=== PATIENT | female | born 1985 | race African-American/Black ===

== ENCOUNTER 2016-10-21 17:14 | Emergency (ER) | payer OTHER ==
[~2016-10-21] VITALS: Ht 154.9 cm; Wt 65.8 kg
[~2016-10-21 17:14] MED LIST: ACETAMINOPHEN-1 EAC1 PO; ACETAMINOPHEN325 M1 PO; APAP500 PO; DERMOPLAST SPRA56 ML; DOXYCYCLINE 10100 MG PO; IBUPROFEN 400400 M1 PO; IBUPROFEN 600600 M1 PO; LORTAB 5 MG/5001 TA1 PO; METAMUCIL197.2 GM; NAPROSYN500 MG PO; NOHOMEMEDICATIONS; NORCO 5-325 TA1 EACH PO; PRENATAL; PRENATAL 1 PLU1 EACH PO; PRENATAL PO; TIZANIDINE HCL4 MG PO; TUCKS MEDICATE1 EAC1; TUMS PO; TYLENOL
[2016-10-21 17:42] LABS: URINE BILIRUBIN NEGATIVE (Negative); URINE BLOOD NEGATIVE (Negative); URINE COLOR YELLOW; URINE GLUCOSE-RANDOM* NEGATIVE (Negative); URINE KETONES NEGATIVE (Negative); URINE LEUKOCYTES-REFLEX NEGATIVE (Negative); URINE PROTEIN (DIPSTICK) NEGATIVE (Negative); URINE SPECIFIC GRAVITY 1.025 (1.003-1.035); URINE UROBILINOGEN 0.2 E.U./dl (0.2-1.0)
[2016-10-21 17:58] LABS: ABSOLUTE NEUTROPHILS 6.1 thou/uL (1.4-8.2); BASOPHILS 0.7 % (0.0-2.0); HEMATOCRIT 34.2 % (37.0-47.0); HEMOGLOBIN 11.3 gm/dL (12.0-15.0); LYMPHOCYTES 25.7 % (24.0-44.0); MANUAL DIFF NO; MCH 27.8 pg (26.0-34.0); MCV 84.3 fL (80.0-100.0); MONOCYTES 6.4 % (1.0-8.0); PLATELET COUNT 210 thou/uL (150-400); POLYS 65.2 % (36.0-66.0); RBC 4.06 mil/uL (4.20-5.00); WBC 9.4 thou/uL (4.0-11.0)
[2016-10-21 18:04] LABS: CALCIUM 8.8 mg/dL (8.5-10.1); CREATININE 0.8 mg/dL (0.6-1.0); POTASSIUM 3.4 mmol/L (3.5-5.1)
[2016-10-21 18:15] LABS: ALBUMIN 3.7 g/dL (3.4-5.0); TOTAL BILIRUBIN 0.9 mg/dL (<0.1-1.0); TOTAL PROTEIN 7.8 g/dL (6.4-8.2)
[2016-10-21] MEDS ORDERED: MIRALAX17 GM PO (18:41)
[2016-10-21] MEDS ORDERED: SENNA S TABLET1 EACH PO (18:41)
[2016-10-21 18:50] VITALS: BP 105/66
== END 2016-10-21 18:50 | disposition home or self-care (01) ==
LOC: ER 17:14
PROVIDERS: Emergency Medicine
DX: R10.13 Epigastric pain (principal); Z98.890 Other specified postprocedural states

== ENCOUNTER 2017-03-04 08:49 | Emergency (ER) | payer OTHER ==
[~2017-03-04] VITALS: Ht 152.4 cm; Wt 65.8 kg
[~2017-03-04 08:49] MED LIST changes: +MIRALAX17 GM PO; +SENNA S TABLET1 EACH PO
[2017-03-04 09:15] LABS: URINE BILIRUBIN NEGATIVE (Negative); URINE BLOOD TRACE (Negative); URINE CLARITY CLOUDY; URINE COLOR YELLOW; URINE GLUCOSE-RANDOM* NEGATIVE (Negative); URINE KETONES NEGATIVE (Negative); URINE LEUKOCYTES TRACE (Negative); URINE NITRITE NEGATIVE (Negative); URINE PROTEIN (DIPSTICK) 2+ (Negative); URINE SPECIFIC GRAVITY 1.025 (1.005-1.035); URINE UROBILINOGEN 0.2 E.U./dl (0.2-1.0)
[2017-03-04 09:31] LABS: CASTS None Seen /LPF (None Seen)
[2017-03-04 09:36] LABS: SQUAMOUS 0-3 Few /LPF (0-3)
[2017-03-04 09:44] LABS: URINE WBC >25 Many /HPF (0-5)
[2017-03-04 09:45] LABS: TRIPLE PHOSPHATE CRYSTALS 0-3 Few /LPF (None Seen); URINE RBC 0-2 Rare /HPF (0-2)
[2017-03-04 09:47] LABS: BACTERIA >30 Many /HPF (None Seen)
[2017-03-04 09:49] LABS: YEAST Present (None Seen)
[2017-03-04] MEDS ORDERED: DIFLUCAN200 MG PO (09:56)
[2017-03-04] MEDS ORDERED: MACROBID 100 M100 M1 PO (09:56)
== END 2017-03-04 10:19 | disposition home or self-care (01) ==
LOC: ER 08:49
PROVIDERS: Nurse Practitioner
DX: N39.0 Urinary tract infection, site not specified (principal); B37.9 Candidiasis, unspecified; Z98.890 Other specified postprocedural states

== ENCOUNTER 2017-03-10 23:51 | Emergency (ER) | payer OTHER ==
[~2017-03-10] VITALS: Ht 152.4 cm; Wt 65.8 kg
[~2017-03-10 23:51] MED LIST changes: +DIFLUCAN200 MG PO; +MACROBID 100 M100 M1 PO
[2017-03-11 00:22] LABS: URINE BILIRUBIN NEGATIVE (Negative); URINE BLOOD NEGATIVE (Negative); URINE CLARITY CLEAR; URINE COLOR YELLOW; URINE GLUCOSE-RANDOM* NEGATIVE (Negative); URINE KETONES NEGATIVE (Negative); URINE LEUKOCYTES NEGATIVE (Negative); URINE NITRITE NEGATIVE (Negative); URINE PROTEIN (DIPSTICK) NEGATIVE (Negative)
[2017-03-11] MEDS ORDERED: FLAGYL500 MG PO (00:50)
[2017-03-11] MEDS ORDERED: AZITHROMYCIN250 MG PO (00:50)
== END 2017-03-11 01:20 | disposition home or self-care (01) ==
LOC: ER 23:51
PROVIDERS: Emergency Medicine
DX: N76.0 Acute vaginitis (principal); R30.0 Dysuria; Z98.890 Other specified postprocedural states

== ENCOUNTER 2017-05-22 13:39 | Emergency (ER) | payer OTHER ==
[~2017-05-22] VITALS: Ht 152.4 cm; Wt 63.5 kg
[~2017-05-22 13:39] MED LIST changes: +AZITHROMYCIN250 MG PO; +FLAGYL500 MG PO
[2017-05-22 14:02] LABS: URINE BILIRUBIN NEGATIVE (Negative); URINE BLOOD NEGATIVE (Negative); URINE CLARITY CLEAR; URINE COLOR YELLOW; URINE GLUCOSE-RANDOM* NEGATIVE (Negative); URINE KETONES NEGATIVE (Negative); URINE LEUKOCYTES-REFLEX NEGATIVE (Negative); URINE NITRITE-REFLEX NEGATIVE (Negative); URINE PROTEIN (DIPSTICK) TRACE (Negative); URINE UROBILINOGEN 0.2 E.U./dl (0.2-1.0)
[2017-05-22] MEDS ORDERED: VALACYCLOVIR1000 MG PO (15:11)
[2017-05-23 14:57] LABS: HSV PCR SOURCE LABIA
[2017-05-25 18:06] LABS: HSV 1 DNA Negative (Negative); HSV 2 DNA Positive (Negative)
== END 2017-05-22 15:20 | disposition home or self-care (01) ==
LOC: ER 13:39
PROVIDERS: Physician Assistant
DX: A60.09 Herpesviral infection of other urogenital tract (principal); N89.8 Other specified noninflammatory disorders of vagina

== ENCOUNTER 2018-03-28 05:44 | Emergency (ER) | payer OTHER ==
[~2018-03-28] VITALS: Ht 152.4 cm; Wt 63.5 kg
[~2018-03-28 05:44] MED LIST changes: +VALACYCLOVIR1000 MG PO
[2018-03-28 05:49] VITALS: BP 110/51
== END 2018-03-28 06:36 | disposition home or self-care (01) ==
LOC: ER 05:44
DX: S63.501A Unspecified sprain of right wrist, initial encounter (principal); X58.XXXA Exposure to other specified factors, initial encounter; Y93.89 Activity, other specified; Y92.89 Other specified places as the place of occurrence of the external cause; Y99.8 Other external cause status

== ENCOUNTER 2018-10-16 21:35 | Emergency (ER) | payer BC ==
[~2018-10-16] VITALS: Ht 152.4 cm; Wt 65.8 kg
[2018-10-16 23:45] LABS: EOSINOPHILS 2.6 % (0.0-3.0); HEMATOCRIT 35.1 % (37.0-47.0); HEMOGLOBIN 11.6 gm/dL (12.0-15.0); LYMPHOCYTES 28.1 % (24.0-44.0); MCH 27.5 pg (26.0-34.0); MCV 83.4 fL (80.0-100.0); MONOCYTES 8.3 % (1.0-8.0); PLATELET COUNT 270 thou/uL (150-400); RBC 4.21 mil/uL (4.20-5.00); RDW 13.3 % (10.5-14.5); WBC 8.4 thou/uL (4.0-11.0)
[2018-10-16 23:56] LABS: CALCIUM 8.8 mg/dL (8.5-10.1); CREATININE 0.7 mg/dL (0.6-1.0); POTASSIUM 3.6 mmol/L (3.5-5.1)
[2018-10-17 00:03] LABS: ALBUMIN 3.7 g/dL (3.4-5.0); TOTAL BILIRUBIN 0.5 mg/dL (<0.1-1.0); TOTAL PROTEIN 7.9 g/dL (6.4-8.2)
[2018-10-17 01:36] LABS: URINE BILIRUBIN NEGATIVE (Negative); URINE BLOOD NEGATIVE (Negative); URINE CLARITY SL CLOUDY; URINE COLOR YELLOW; URINE GLUCOSE-RANDOM* NEGATIVE (Negative); URINE KETONES NEGATIVE (Negative); URINE LEUKOCYTES-REFLEX NEGATIVE (Negative); URINE NITRITE-REFLEX NEGATIVE (Negative); URINE PROTEIN (DIPSTICK) NEGATIVE (Negative); URINE SPECIFIC GRAVITY 1.025 (1.005-1.035); URINE UROBILINOGEN 0.2 E.U./dl (0.2-1.0)
[2018-10-17] MEDS ORDERED: DIFLUCAN150 MG PO (04:33)
[2018-10-17] MEDS ORDERED: FLAGYL500 M1 PO (04:33)
[2018-10-17 06:25] VITALS: BP 106/64
== END 2018-10-17 06:26 | disposition home or self-care (01) ==
LOC: ER 21:35
PROVIDERS: Emergency Medicine
DX: N83.201 Unspecified ovarian cyst, right side (principal); N76.0 Acute vaginitis; B37.9 Candidiasis, unspecified; F10.10 Alcohol abuse, uncomplicated

== ENCOUNTER 2019-03-02 15:56 | Emergency (ER) | payer BC ==
[~2019-03-02] VITALS: Ht 154.9 cm; Wt 63.5 kg
[~2019-03-02 15:56] MED LIST changes: +DIFLUCAN150 MG PO; +FLAGYL500 M1 PO
[2019-03-02 17:37] LABS: URINE BILIRUBIN NEGATIVE (Negative); URINE BLOOD NEGATIVE (Negative); URINE CLARITY CLEAR; URINE COLOR YELLOW; URINE GLUCOSE-RANDOM* NEGATIVE (Negative); URINE KETONES NEGATIVE (Negative); URINE LEUKOCYTES-REFLEX NEGATIVE (Negative); URINE NITRITE-REFLEX NEGATIVE (Negative); URINE PROTEIN (DIPSTICK) NEGATIVE (Negative); URINE SPECIFIC GRAVITY 1.025 (1.005-1.035); URINE UROBILINOGEN 0.2 E.U./dl (0.2-1.0)
[2019-03-02 18:33] VITALS: BP 130/77
== END 2019-03-02 18:33 | disposition home or self-care (01) ==
LOC: ER 15:56
PROVIDERS: Emergency Medicine
DX: R30.0 Dysuria (principal)

== ENCOUNTER 2019-09-12 21:58 | Emergency (ER) | payer BC ==
[~2019-09-12] VITALS: Ht 152.4 cm; Wt 76.7 kg
[2019-09-13 01:00] VITALS: BP 108/63
== END 2019-09-13 01:03 | disposition home or self-care (01) ==
LOC: ER 21:58
DX: R51 Headache (principal); R42 Dizziness and giddiness; Z79.899 Other long term (current) drug therapy

== ENCOUNTER 2020-01-12 06:54 | Emergency (ER) | payer BC ==
[~2020-01-12] VITALS: Ht 152.4 cm; Wt 77.1 kg
[2020-01-12] MEDS ORDERED: CYCLOBENZAPRINE5 MG PO (08:19)
[2020-01-12 09:00] VITALS: BP 126/78
== END 2020-01-12 09:00 | disposition home or self-care (01) ==
LOC: ER 06:54
DX: S29.012A Strain of muscle and tendon of back wall of thorax, initial encounter (principal); X58.XXXA Exposure to other specified factors, initial encounter; Y93.89 Activity, other specified; Y92.89 Other specified places as the place of occurrence of the external cause; Y99.8 Other external cause status

== ENCOUNTER 2021-04-03 20:56 | Emergency (ER) | payer BC ==
[~2021-04-03] VITALS: Ht 152.4 cm; Wt 85.3 kg
[~2021-04-03 20:56] MED LIST changes: +CYCLOBENZAPRINE5 MG PO
[2021-04-03 21:12] VITALS: BP 128/70
== END 2021-04-03 22:03 | disposition left against medical advice (07) ==
LOC: ER 20:56
DX: M54.50 Low back pain, unspecified (principal); M79.605 Pain in left leg; M79.604 Pain in right leg; Z53.21 Procedure and treatment not carried out due to patient leaving prior to being seen by health care provider; Z86.16 Personal history of COVID-19; Z98.890 Other specified postprocedural states; Z90.79 Acquired absence of other genital organ(s)